=== PATIENT | male | born 1955 | race Caucasian/White ===

== ENCOUNTER 2020-01-21 10:28 | Emergency (ER) | payer OTHER ==
[~2020-01-21] VITALS: Ht 172.7 cm; Wt 79.8 kg
[2020-01-21 10:36] VITALS: BP 165/89
[2020-01-21] MEDS ORDERED: METH-406 PO (10:45)
[2020-01-21] MEDS ORDERED: METF-440 PO (10:45)
[2020-01-21] MEDS ORDERED: LISI-607 PO (10:45)
== END 2020-01-21 10:48 | disposition home or self-care (01) ==
LOC: ER 10:31
DX: M54.5 Low back pain (principal); M54.6 Pain in thoracic spine; G89.29 Other chronic pain; I10 Essential (primary) hypertension; E11.9 Type 2 diabetes mellitus without complications; Z98.890 Other specified postprocedural states

== ENCOUNTER 2020-06-30 11:31 | Emergency (ER) | payer OTHER ==
[~2020-06-30] VITALS: Ht 172.7 cm; Wt 81.6 kg
[~2020-06-30 11:31] MED LIST: LISI-607 PO; METF-440 PO; METH-406 PO
--- NOTE | 2020-06-30 11:43 | NUR ---
patient came in to the er for medrefill of percocet 5/325 mg for back pain s/p back surgery march 2020. On room air, breathing evenly and unlabored. Ambulatory with steady gait. Kept comfortable, will continue to monitor accordingly.
[2020-06-30 11:47] VITALS: BP 162/95
--- NOTE | 2020-06-30 11:48 | NUR ---
Patient discharged to home in stable condition. Written and verbal after care instructions given. Patient verbalizes understanding of instruction.
== END 2020-06-30 11:48 | disposition home or self-care (01) ==
LOC: ER 11:35
DX: G89.29 Other chronic pain (principal); M54.9 Dorsalgia, unspecified; Z76.0 Encounter for issue of repeat prescription; I10 Essential (primary) hypertension; E11.9 Type 2 diabetes mellitus without complications; Z98.890 Other specified postprocedural states; Z79.84 Long term (current) use of oral hypoglycemic drugs; Z79.899 Other long term (current) drug therapy

== ENCOUNTER 2021-05-09 00:05 | Emergency (ER) | payer OTHER ==
[~2021-05-09] VITALS: Ht 172.7 cm; Wt 77.1 kg
[~2021-05-09 00:05] MED LIST changes: -LISI-607 PO; +LISI-768 PO
[2021-05-09 00:08] VITALS: BP 149/84
== END 2021-05-09 01:40 | disposition home or self-care (01) ==
LOC: ER 00:07
DX: G89.29 Other chronic pain (principal); M54.2 Cervicalgia; M54.9 Dorsalgia, unspecified; Z76.5 Malingerer [conscious simulation]; I10 Essential (primary) hypertension; E11.9 Type 2 diabetes mellitus without complications; Z98.890 Other specified postprocedural states; Z79.899 Other long term (current) drug therapy; Z79.84 Long term (current) use of oral hypoglycemic drugs

== ENCOUNTER 2023-04-05 20:14 | Emergency (ER) | payer BC, OTHER ==
[~2023-04-05] VITALS: Ht 172.7 cm; Wt 73.0 kg
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
[2023-04-05] MEDS ORDERED: oxyCODONE/APAP (5/325 MG) 1 UDTAB TABLET PO ONE (21:00)
[2023-04-05] MEDS ORDERED: TDAP [DIPH/PERTUSSIS/TET] 0.5 ML VIAL IM ONE ×2 (21:00→21:02)
[2023-04-05] MEDS ORDERED: oxyCODONE/APAP (5/325 MG) 1 UDTAB TABLET ONE (21:02)
--- NOTE | 2023-04-05 21:34 | NUR ---
Patient eloped from facility. ER MD notified.
[2023-04-05 21:35] VITALS: BP 165/93
== END 2023-04-05 21:50 | disposition left against medical advice (07) ==
LOC: ER 20:16
DX: S30.810A Abrasion of lower back and pelvis, initial encounter (principal); R10.2 Pelvic and perineal pain; I10 Essential (primary) hypertension; E11.9 Type 2 diabetes mellitus without complications; M54.50 Low back pain, unspecified; G89.29 Other chronic pain; Z98.890 Other specified postprocedural states; Z79.899 Other long term (current) drug therapy; Z86.73 Personal history of transient ischemic attack (TIA), and cerebral infarction without residual deficits; X58.XXXA Exposure to other specified factors, initial encounter; Y93.89 Activity, other specified; Y92.89 Other specified places as the place of occurrence of the external cause; Y99.8 Other external cause status
CPT/HCPCS: 90715

== ENCOUNTER 2023-07-22 17:16 | Emergency (ER) | payer OTHER ==
[~2023-07-22] VITALS: Ht 172.7 cm; Wt 71.2 kg
[2023-07-22 17:56] VITALS: TEMP 98.4
[2023-07-22] MEDS ORDERED: oxyCODONE/APAP (5/325 MG) 1 UDTAB TABLET ONE (21:22)
[2023-07-22] MEDS ORDERED: oxyCODONE/APAP (5/325 MG) 1 UDTAB TABLET PO ONE (21:30)
[2023-07-22 22:14] VITALS: BP 132/68; O2SAT 100
== END 2023-07-22 22:15 | disposition home or self-care (01) ==
LOC: ER 17:20
DX: S23.41XA Sprain of ribs, initial encounter (principal); S39.012A Strain of muscle, fascia and tendon of lower back, initial encounter; S80.211A Abrasion, right knee, initial encounter; I10 Essential (primary) hypertension; E11.9 Type 2 diabetes mellitus without complications; Z98.890 Other specified postprocedural states; Z79.899 Other long term (current) drug therapy; Z86.73 Personal history of transient ischemic attack (TIA), and cerebral infarction without residual deficits; Z60.2 Problems related to living alone; Y04.8XXA Assault by other bodily force, initial encounter; Y93.89 Activity, other specified; Y92.89 Other specified places as the place of occurrence of the external cause; Y99.8 Other external cause status
CPT/HCPCS: 71100-TC; 72131-TC

== ENCOUNTER 2023-08-18 14:37 | Emergency (ER) | payer OTHER ==
[~2023-08-18] VITALS: Ht 172.7 cm; Wt 72.6 kg
[2023-08-18] MEDS ORDERED: CYCLOBENZAPRINE 10 MG TABLET PO ONE (15:00)
[2023-08-18] MEDS ORDERED: LORAZEPAM 1 MG TABLET PO ONE (15:00)
[2023-08-18] MEDS ORDERED: KETOROLAC TROMETHAMINE INJ 30 MG/ML VIAL IM ONE (15:00)
[2023-08-18] MEDS ORDERED: methylPREDNISolone ACETATE 40 MG/ML VIAL IM ONE (15:00)
[2023-08-18] MEDS ORDERED: methylPREDNISolone SOD SUCC 40 MG/ML VIAL ONE (15:06)
[2023-08-18] MEDS ORDERED: LORAZEPAM 1 MG TABLET ONE (15:06)
[2023-08-18] MEDS ORDERED: KETOROLAC TROMETHAMINE INJ 30 MG/ML VIAL ONE (15:06)
[2023-08-18] MEDS ORDERED: CYCLOBENZAPRINE 10 MG TABLET ONE (15:07)
[2023-08-18] MEDS ORDERED: ESCI5TAB PO (16:22)
[2023-08-18] MEDS ORDERED: HYDR-4209 PO (16:22)
[2023-08-18] MEDS ORDERED: LIDO1ADH82 TP (16:46)
[2023-08-18 16:59] VITALS: BP 147/93; TEMP 98.3; O2SAT 100
== END 2023-08-18 16:59 | disposition home or self-care (01) ==
LOC: ER 14:37
DX: S20.212A Contusion of left front wall of thorax, initial encounter (principal); I10 Essential (primary) hypertension; E11.9 Type 2 diabetes mellitus without complications; G89.29 Other chronic pain; Z60.2 Problems related to living alone; V02.90XA Pedestrian on foot injured in collision with two- or three-wheeled motor vehicle, unspecified whether traffic or nontraffic accident, initial encounter; Y93.89 Activity, other specified; Y92.89 Other specified places as the place of occurrence of the external cause; Y99.8 Other external cause status
CPT/HCPCS: 99283; 96372; 71100; J1030; J2920; J1885

== ENCOUNTER 2023-12-14 16:08 | Emergency (ER) | payer OTHER ==
[~2023-12-14] VITALS: Ht 172.7 cm; Wt 68.0 kg
[~2023-12-14 16:08] MED LIST changes: +ESCI5TAB PO; +HYDR-4209 PO; +LIDO1ADH82 TP
[2023-12-14] MEDS ORDERED: IV NS 0.9% 1,000 ML BAG IV ONE (17:00)
[2023-12-14 17:43] LABS: BASOPHILS # (AUTO) 0.1 K/uL (0.0-0.2); EOSINOPHILS # (AUTO) 0.2 K/uL (0.0-0.7); EOSINOPHILS % (AUTO) 3.3 % (0.0-6.0); HEMATOCRIT 38 % (39-51); LYMPHOCYTES # (AUTO) 1.8 K/uL (0.8-4.8); LYMPHOCYTES % (AUTO) 26.8 % (20.0-44.0); MEAN CORPUSCULAR HEMOGLOBIN 32 PG (26.0-33.0); MEAN CORPUSCULAR HGB CONC 34 g/dl (31.0-36.0); MEAN CORPUSCULAR VOLUME 92 fL (80-96); MONOCYTES # (AUTO) 0.5 K/uL (0.1-1.30); MONOCYTES % (AUTO) 6.9 % (2.0-12.0); NEUTROPHILS # (AUTO) 4.2 K/uL (1.8-8.9); PLATELET COUNT (AUTO) 160 K/uL (150-450); RED BLOOD CELL COUNT(AUTO) 4.13 MIL/uL (4.5-6.0); RED CELL DISTRIBUTION WIDTH 13.4 % (11.5-15.0); WHITE BLOOD COUNT (AUTO) 6.7 K/uL (4.3-11.0)
[2023-12-14 17:59] LABS: CALCIUM, SERUM 9.9 mg/dL (8.5-10.1); CARBON DIOXIDE 29 mmol/L (21-32); CHLORIDE 101 mmol/L (98-107); CREATININE 0.8 mg/dL (0.6-1.3); GLUCOSE 126 mg/dL (74-106); POTASSIUM 3.6 mmol/L (3.5-5.1); SODIUM SERUM 138 mmol/L (136-145); UREA NITROGEN, BLOOD 19 mg/dL (7-18)
[2023-12-14 18:07] LABS: INR 1.03 (0.91-1.10); PARTIAL THROMBOPLASTIN TIME 28.8 SEC (24.3-34.3); PROTHROMBIN TIME 10.9 SECS (9.2-11.1)
[2023-12-14 18:11] LABS: ALANINE AMINOTRANSFERASE 11 U/L (12-78); ALBUMIN 3.5 g/dL (3.4-5.0); ALKALINE PHOSPHATASE 82 U/L (46-116); ASPARTATE AMINOTRANSFERASE 8 U/L (15-37); BILIRUBIN,DIRECT 0.1 mg/dL (0.0-0.2); BILIRUBIN,TOTAL 0.6 mg/dL (0.2-1.0); TOTAL PROTEIN, SERUM 6.7 g/dL (6.4-8.2)
[2023-12-14 19:26] VITALS: BP 114/72; TEMP 98; O2SAT 98
== END 2023-12-14 19:26 | disposition home or self-care (01) ==
LOC: ER 16:12
DX: R53.1 Weakness (principal); I10 Essential (primary) hypertension; E11.9 Type 2 diabetes mellitus without complications; G89.29 Other chronic pain; Z60.2 Problems related to living alone; Z79.84 Long term (current) use of oral hypoglycemic drugs; Z79.899 Other long term (current) drug therapy
CPT/HCPCS: 36415; 71045-TC; 80048-TC; 80076-TC; 82962-TC; 84484-TC; 85025-TC; 85730-TC